=== PATIENT | female | born 2000 | race Two or more races ===

== ENCOUNTER 2019-08-25 00:54 | Observation (INO) | payer MEDICAID, OTHER ==
[~2019-08-25] VITALS: Ht 165.1 cm; Wt 73.0 kg
[2019-08-25] MEDS ORDERED: PREN-96 PO (01:14)
== END 2019-08-25 01:42 | disposition home or self-care (01) | DRG 566 ==
LOC: LDRP 00:54
PROVIDERS: ADMIT Specialist; ATTEND Specialist
DX: O62.9 Abnormality of forces of labor, unspecified (principal); Z3A.39 39 weeks gestation of pregnancy
CPT/HCPCS: 59025; 81002; G0378

== ENCOUNTER 2019-08-25 11:30 | Inpatient (IN) | payer MEDICAID ==
[~2019-08-25] VITALS: Ht 165.1 cm; Wt 73.5 kg
[~2019-08-25 11:30] MED LIST: PREN-96 PO
[2019-08-25] MEDS ORDERED: LACTATED RINGER'S 1,000 ML IV SCH (12:39)
[2019-08-25] MEDS ORDERED: LACT. RINGERS/OXYTOCIN 20UNITS 1,000 ML IV SCH (12:39)
[2019-08-25] MEDS ORDERED: WITCH HAZEL-GLYCERIN PAD TOP PRN (12:45)
[2019-08-25] MEDS ORDERED: PHISODERM TOP SOLN 240ML BTL TOP PRN (12:45)
[2019-08-25] MEDS ORDERED: LIDOCAINE 2%HCL (LOCAL ANESTH.) INJ 20ML MDV ID PRN (12:45)
[2019-08-25] MEDS ORDERED: DERMOPLAST 60ML BOTTLE TOP PRN (12:45)
[2019-08-25] MEDS ORDERED: NALBUPHINE HCL 10 MG/1ml INJECTION IV PRN (12:45)
[2019-08-25] MEDS: ceFAZolin 1GM/50ML 50 ML IV SCH ×2 (14:08→21:58)
[2019-08-25 14:25] LABS: Urine WBC None Seen /hpf (0 - 5)
[2019-08-25 14:32] LABS: Basophils # (auto) 0.1 10 ^3/uL (0-0.2); Basophils % (auto) 0.7 % (0.0-2.0); Eosinophils # (auto) 0 10 ^3/uL (0-0.8); Eosinophils % (auto) 0.4 % (0.0-7.0); Hemoglobin 13.1 g/dL (12.2-16.2); Lymphocytes # (auto) 1.9 10 ^3/uL (0.4-5.4); Mean Corpuscular Hemoglobin 30.3 pg (28.0-32.0); Mean Corpuscular Hgb Conc. 34.5 g/dL (32.0-36.0); Mean Corpuscular Volume 87.8 fL (80.0-100.0); Monocytes # (auto) 0.4 10 ^3/uL (0-1.3); Monocytes % (auto) 5.3 % (0.0-12.0); Neutrophils # (auto) 5.8 10 ^3/uL (1.6-8.6); Neutrophils % (auto) 70.6 % (37.0-80.0); Nucleated Red Blood Cells % 0.2 %; Platelet Count (auto) 232 10^3/uL (140-450); Red Blood Cells 4.33 10^6/uL (4.0-5.20); Red Cell Distribution Width 13.7 % (11.8-14.3); White Blood Cell 8.2 10^3/uL (4.4-10.8)
[2019-08-25 14:41] LABS: Urine Bacteria NONE SEEN /hpf (None Seen); Urine Blood 2+ /uL (Negative); Urine Specific Gravity 1.003 (1.001-1.035); Urine Sperm PRESENT /hpf (None Seen)
[2019-08-25 14:46] LABS: INR 0.91 (0.9-1.15); Partial Thromboplastin Time 27.5 sec (23.64-32.05)
[2019-08-25 14:47] LABS: Albumin 2.7 g/dL (3.4-5.0); Calcium 8.5 mg/dL (8.5-10.1); Potassium 3.5 mmol/L (3.5-5.1)
[2019-08-25 14:52] LABS: Bilirubin, Total 0.2 mg/dL (0.2-1.0); Total Protein 6.8 g/dL (6.4-8.2)
[2019-08-25] MEDS ORDERED: miSOPROStol 50 MCG per PRE-CUT 1/2 TAB PO ONE (15:30)
[2019-08-25] MEDS ORDERED: TERBUTALINE SULFATE 1 MG/ML 1ML VIAL SC ONE (15:30)
[2019-08-25] MEDS ORDERED: NALOXONE HCL 0.4 MG/ML VIAL IV ONE ×2 (18:45→19:45)
[2019-08-25] MEDS ORDERED: ePHEDrine SULFATE 50 MG/ML AMP IV ONE ×2 (18:45→19:45)
[2019-08-25] MEDS ORDERED: ROPIVACAINE HCL 100 ML EPI SCH ×2 (18:45→19:15)
[2019-08-25] MEDS ORDERED: fentaNYL CITRATE 100 MCG/2 ML VL EPI ONE (18:45)
[2019-08-25] MEDS ORDERED: LIDOCAINE HCL 2 %PF INJ 10ML AMP IJ ONE (18:54)
[2019-08-25] MEDS ORDERED: ROPIVACAINE HCL 100 ML ONE (18:54)
[2019-08-25] MEDS ORDERED: fentaNYL CITRATE 100 MCG/2 ML VL ONE (18:54)
[2019-08-25] MEDS ORDERED: ePHEDrine SULFATE 50 MG/ML AMP ONE (18:55)
[2019-08-25] MEDS ORDERED: SODIUM CHLORIDE 0.9% 500 ML IV PRN (19:31)
[2019-08-25] MEDS ORDERED: LACTATED RINGER'S 500 ML IV ONE (19:31)
[2019-08-25] MEDS ORDERED: fentaNYL 200mCg/100ml W ROPIVA 100 ML EPI SCH (19:45)
--- NOTE | 2019-08-26 00:28 | NUR ---
MED WASTE: FENTANYL WITH ROPIVICAINE EPIDURAL MIXED BAG BROUGHT TO UNIT BY BIODIESEL PRODUCTION ASSOCIATE PER DR. PIERRE REQUEST AND TAKEN INTO ROOM FOR ADMINISTRATION. 0025: 135MCG FENTANYL WITH ROPIVICAINE WASTED AND WITNESSED BY Amy BELCHER RN.
--- NOTE | 2019-08-26 01:25 | NUR ---
Ambulation: This RN removes epidural cathetar via clean technique and visualized blue tip of cathetar intact. pt tolerates procedure well. Patient OOB with standby assistance by RN. Patient ambulated to bathroom with steady gait. Patient able to void without difficulty. [facility]icare teaching provided with returned demonstration by patient. Clean gown provided and bed linen changed. Patient ambulated back to bed with steady gait and no distress noted. Addendum: 08/26/19 at 0147 by MIAH OG RN RN PT UNABLE TO VOID AT THIS TIME.
[2019-08-26] MEDS ORDERED: ACETAMINOPHEN 325 MG TAB PO PRN (02:00)
--- NOTE | 2019-08-26 02:00 | NUR ---
HAND OFF REPORT ON STABLE PT GIVEN TO El MAX RN
[2019-08-26] MEDS: IBUPROFEN 600 MG TAB PO PRN (02:22)
[2019-08-26 03:00] VITALS: BP 136/72
[2019-08-26 06:47] VITALS: BP 122/79
[2019-08-26] MEDS ORDERED: DOCUSATE CALCIUM 240 MG CAP PO SCH (10:00)
[2019-08-26 10:40] VITALS: BP 114/56
[2019-08-26 15:05] VITALS: BP 119/63
--- NOTE | 2019-08-26 15:58 | NUR ---
REPORT GIVEN TO Carmencita PERRIN RN
--- NOTE | 2019-08-26 16:49 | NUR ---
Discharge: Discharge instructions given as ordered. Pt encouraged to follow up with DISTANCE LEARNING TECHNICIAN as instructed. All questions and concerns addressed. Patient verbalized understanding.
[2019-08-26 19:00] VITALS: BP 124/68
--- NOTE | 2019-08-26 20:00 | NUR ---
IV removal IV DC'd with clean technique, catheter fully intact. Pressure dressing applied to site. Patient tolerated well. NOTE:
[2019-08-26 23:00] VITALS: BP 119/71
[2019-08-27 03:00] VITALS: BP 117/66
[2019-08-27 07:10] VITALS: BP 125/77
[2019-08-27] MEDS: IBUPROFEN 600 MG TAB PO PRN (07:53)
--- NOTE | 2019-08-27 10:15 | NUR ---
Discharge: Discharge instructions given as ordered. Pt encouraged to follow up with FIRE SAFETY DIRECTOR as instructed. All questions and concerns addressed. Patient verbalized understanding. Medication reconciliation completed and copy given to patient. All required/requested vaccines given and copies of vaccinations given to patient. Patient encouraged to prepare to depart unit.
[2019-08-27 10:30] VITALS: BP 131/66
--- NOTE | 2019-08-27 11:20 | NUR ---
Discharge: Patient taken to vehicle via wheelchair with all personal belongings, accompanied by staff and family member. No distress noted at time of departure, no adverse changes in status since initial assessment.
== END 2019-08-27 11:20 | disposition home or self-care (01) | DRG 560 ==
LOC: LDRP 11:30 → OBSVTOIN 12:10
PROVIDERS: ADMIT Specialist; ATTEND Specialist
PROC: 0HQ9XZZ Repair Perineum Skin, External Approach (ICD-10-PCS; principal; 2019-08-25)
PROC: 10E0XZZ Delivery of Products of Conception, External Approach (ICD-10-PCS; 2019-08-25)
PROC: 3E0R3BZ Introduction of Anesthetic Agent into Spinal Canal, Percutaneous Approach (ICD-10-PCS; 2019-08-25)
PROC: 00HU33Z Insertion of Infusion Device into Spinal Canal, Percutaneous Approach (ICD-10-PCS; 2019-08-25)
PROC: 10H07YZ Insertion of Other Device into Products of Conception, Via Natural or Artificial Opening (ICD-10-PCS; 2019-08-25)
DX: O42.92 Full-term premature rupture of membranes, unspecified as to length of time between rupture and onset of labor (principal); O70.0 First degree perineal laceration during delivery; Z37.0 Single live birth; Z3A.39 39 weeks gestation of pregnancy; Z11.59 Encounter for screening for other viral diseases
CPT/HCPCS: 36415; 59409; 62282; 80053; 81001; 84112; 84550; 85025; 85610; 85730; 86850; 86900; 86901; 94760; 96360; 96361; 96365; 96366; G0378; J0690; J2590

== ENCOUNTER 2020-08-26 11:54 | Observation (INO) | payer MEDICAID | END 2020-08-26 13:42 | disposition home or self-care (01) | LOC: LDRP 11:54 | PROVIDERS: ADMIT Obstetrics & Gynecology; ATTEND Obstetrics & Gynecology | DX: O69.89X0 Labor and delivery complicated by other cord complications, not applicable or unspecified (principal); O36.8991 Maternal care for other specified fetal problems, unspecified trimester, fetus 1; Z3A.25 25 weeks gestation of pregnancy | CPT/HCPCS: 59025; 76818; 81002; 94760; G0378 ==

== ENCOUNTER 2020-09-10 10:18 | Observation (INO) | payer MEDICAID | END 2020-09-10 11:05 | disposition home or self-care (01) | LOC: LDRP 10:18 | PROVIDERS: ADMIT Obstetrics & Gynecology; ATTEND Obstetrics & Gynecology | DX: O69.81X0 Labor and delivery complicated by cord around neck, without compression, not applicable or unspecified (principal); Z3A.27 27 weeks gestation of pregnancy | CPT/HCPCS: 59025; 76818; 81002; 94762; G0378 ==

== ENCOUNTER 2020-09-17 10:19 | Observation (INO) | payer MEDICAID | END 2020-09-17 12:00 | disposition home or self-care (01) | LOC: LDRP 10:19 | PROVIDERS: ADMIT Obstetrics & Gynecology; ATTEND Obstetrics & Gynecology | DX: O69.89X0 Labor and delivery complicated by other cord complications, not applicable or unspecified (principal); O26.893 Other specified pregnancy related conditions, third trimester; H53.8 Other visual disturbances; Z3A.28 28 weeks gestation of pregnancy | CPT/HCPCS: 59025; 76818; 81002; 94760; G0378 ==

== ENCOUNTER 2020-10-01 10:05 | Observation (INO) | payer MEDICAID | END 2020-10-01 11:43 | disposition home or self-care (01) | LOC: LDRP 10:05 | PROVIDERS: ADMIT Obstetrics & Gynecology; ATTEND Obstetrics & Gynecology | DX: O69.89X0 Labor and delivery complicated by other cord complications, not applicable or unspecified (principal); Z3A.30 30 weeks gestation of pregnancy | CPT/HCPCS: 59025; 76818; 81002; 94760; G0378 ==